=== PATIENT | male | born 1970 | race African-American/Black ===

== ENCOUNTER 2019-12-25 21:35 | Emergency (ER) | payer MEDICAID, OTHER ==
[~2019-12-25] VITALS: Ht 182.9 cm; Wt 103.0 kg
[2019-12-25] MEDS ORDERED: DIPHENHYDRAMINE 50MG/ML VIAL IM STA (22:27)
[2019-12-25] MEDS ORDERED: LORAZEPAM 2MG/ML CPJ IV STA (22:27)
[2019-12-25] MEDS ORDERED: HALOPERIDOL LACTATE 5MG/ML VIAL IM STA (22:27)
[2019-12-25 23:39] LABS: BASOPHILS % 0.6 % (0.0-2.0); EOSINOPHILS % 0.2 % (0.0-5.0); HEMATOCRIT. 43.8 % (42.0-52.0); HEMOGLOBIN. 14.2 g/dL (14.0-18.0); LYMPHOCYTES % 20.6 % (20.0-50.0); MEAN CORPUSCULAR HEMOGLOBIN 27.1 pg (28.0-32.0); MEAN CORPUSCULAR VOLUME 83.4 fL (80.0-94.0); MEAN PLATELET VOLUME 7.8 fl (7.4-10.4); MONOCYTES % 10.2 % (2.0-8.0); NEUTROPHILS % 68.4 % (40.0-76.0); PLATELET 335 x1000/uL (130-400); RED BLOOD CELL COUNT 5.25 mill/uL (4.7-6.1); RED CELL DISTRIBUTION WIDTH 14.9 % (11.6-14.6)
[2019-12-25 23:43] LABS: CHLORIDE 112 mEq/L (98-107)
[2019-12-25 23:48] LABS: ETHANOL BLOOD < 10 mg/dL
[2019-12-27 09:07] LABS: CLARITY URINE CLEAR (CLEAR); COLOR URINE YELLOW (YELLOW); KETONES URINE TRACE (NEGATIVE); LEUKOCYTE ESTERASE URINE NEGATIVE (NEGATIVE); NITRITE URINE NEGATIVE (NEGATIVE); OCCULT BLOOD URINE NEGATIVE (NEGATIVE); PROTEIN URINE TRACE (NEGATIVE); SPECIFIC GRAVITY URINE 1.035 (1.005-1.030); UROBILINOGEN URINE 0.2 E.U./dL (0.2-1.0)
[2019-12-27 09:21] LABS: *AMPHETAMINES SCREEN URINE PRESUMTIVE POSITIVE (NEGATIVE); *BARBITURATES SCREEN URINE NEGATIVE (NEGATIVE)
[2019-12-27 09:22] LABS: *BENZODIAZEPINES SCREEN URINE NEGATIVE (NEGATIVE); *COCAINE SCREEN URINE NEGATIVE (NEGATIVE); CANNABINOID URINE SCREEN PRESUMTIVE POSITIVE (NEGATIVE); METHADONE URINE SCREEN NEGATIVE (NEGATIVE); OPIATES URINE SCREEN NEGATIVE (NEGATIVE); PHENCYCLIDINE URINE SCREEN NEGATIVE (NEGATIVE)
[2019-12-28 17:00] VITALS: BP 121/70
== END 2019-12-28 17:34 | disposition home or self-care (01) ==
LOC: ER 21:35
DX: T43.621A Poisoning by amphetamines, accidental (unintentional), initial encounter (principal); R45.851 Suicidal ideations; R45.850 Homicidal ideations; F20.0 Paranoid schizophrenia; Y93.89 Activity, other specified; F15.129 Other stimulant abuse with intoxication, unspecified; Y92.488 Other paved roadways as the place of occurrence of the external cause
CPT/HCPCS: 36415; 80053; 80307; 80320; 80329; 85025; 96372; 96374; 99285; J1200; J1630; J2060; G0480

== ENCOUNTER 2020-04-28 02:21 | Emergency (ER) | payer OTHER ==
[~2020-04-28] VITALS: Ht 182.9 cm; Wt 110.0 kg
[2020-04-28] MEDS ORDERED: ONDANSETRON HCL 4MG/2ML INJ IV STA (03:03)
[2020-04-28] MEDS ORDERED: SODIUM CHLORIDE 0.9% 1,000 ML IV ONE (03:15)
[2020-04-28] MEDS ORDERED: LOPERAMIDE HCL 2MG CAPSULE PO ONE (03:15)
[2020-04-28 03:52] LABS: BASOPHILS % 0.4 % (0.0-2.0); EOSINOPHILS % 0.2 % (0.0-5.0); HEMATOCRIT. 41.5 % (42.0-52.0); HEMOGLOBIN. 13.4 g/dL (14.0-18.0); MEAN CORPUSCULAR HEMOGLOBIN 26.7 pg (28.0-32.0); MEAN CORPUSCULAR VOLUME 82.8 fL (80.0-94.0); MEAN PLATELET VOLUME 8.2 fl (7.4-10.4); MONOCYTES % 11.9 % (2.0-8.0); NEUTROPHILS % 72.5 % (40.0-76.0); PLATELET 349 x1000/uL (130-400); RED BLOOD CELL COUNT 5.02 mill/uL (4.7-6.1); RED CELL DISTRIBUTION WIDTH 15.3 % (11.6-14.6)
[2020-04-28 03:54] LABS: CHLORIDE 108 mEq/L (98-107)
[2020-04-28 04:00] LABS: ETHANOL BLOOD < 10 mg/dL
[2020-04-28] MEDS ORDERED: CEFTRIAXONE 1 G PREMIX 50 ML IV NR (05:00)
[2020-04-28] MEDS ORDERED: AZITHROMYCIN 500 MG in DEXT 5% WATER 250 ML IV NR (05:00)
[2020-04-28] MEDS ORDERED: IOHEXOL-300 100 ML BOTTLE ONE (07:13)
[2020-04-28 07:30] VITALS: BP 103/57
== END 2020-04-28 08:51 | disposition short-term general hospital (02) ==
LOC: ER 02:21
DX: I95.9 Hypotension, unspecified (principal); I10 Essential (primary) hypertension; I42.9 Cardiomyopathy, unspecified; Z98.890 Other specified postprocedural states; Z20.828 Contact with and (suspected) exposure to other viral communicable diseases; Z95.9 Presence of cardiac and vascular implant and graft, unspecified
CPT/HCPCS: 36415; 71045; 74177; 80053; 80320; 82962; 83605; 83690; 84145; 85025; 87040; 87635; 93005; 96361; 96365; 96366; 96367; 96375; 99285; J0456; J0696; J2405; J7030; J7060; Q9967; G0480